=== PATIENT | female | born 1995 | race Caucasian/White ===

== ENCOUNTER 2020-12-20 14:09 | Emergency (ER) | payer OTHER ==
[2020-12-20] MEDS ORDERED: IBUPROFEN 400 MG TAB ONE (15:57)
--- NOTE | 2020-12-20 16:03 | RAD REPORT ---
EXAM DESCRIPTION: RAD - Ankle Right 3 View - 12/20/2020 3:19 pm CLINICAL HISTORY: PAIN, trip and fall COMPARISON: No comparisons FINDINGS: No fracture, dislocation or periosteal reaction. No joint effusion seen. No joint space na rrowing. Lateral soft tissue swelling is present. IMPRESSION: Lateral soft tissue swelling with no fracture identifiable of the right ankle.
--- NOTE | 2020-12-20 16:28 | EDPHYS ---
Physician Documentation [facility] Name: Louise Reyez Age: 25 yrs Sex: Female : 1995 Arrival Date: 12/20/2020 Time: 14:13 Bed 12 Private MD: ED Physician Richard Dangelo HPI: 12/20 17:03 This 25 yrs old Female presents to ER via Wheelchair with complaints of Ankle kb Injury. 17:03 The patient presents with decreased range of motion, an injury, pain, swelling, kb tenderness. The complaints affect the right ankle. Onset: The symptoms/episode began/occurred today. Context: The problem was sustained at home, resulted from slipped on laundry basket in garage, The patient is unable to bear weight. the patient is able to ambulate. Associated signs and symptoms: Pertinent positives: swelling, Pertinent negatives: calf tenderness, fever, nausea, numbness, rash, tingling, vomiting, warmth, weakness. Modifying factors: The symptoms are alleviated by nothing, the symptoms are aggravated by weight bearing, movement. Severity of symptoms: At their worst the symptoms were moderate, in the emergency department the symptoms are unchanged. The patient has not experienced similar symptoms in the past. The patient has not recently seen a physician. 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 - Social history:: Smoking status: . ROS: 17:02 Constitutional: Negative for fever, chills, and weight loss, Skin: Negative for injury, kb rash, and discoloration, Neuro: Negative for headache, weakness, numbness, tingling, and seizure. 17:02 MS/extremity: Positive for injury or acute deformity, decreased range of motion, pain, swelling, tenderness, of the right ankle. Exam: 17:02 Constitutional: This is a well developed, well nourished patient who is awake, alert, kb and in no acute distress. Head/Face: Normocephalic, atraumatic. Respiratory: Respirations even and unlabored. No increased work of breathing, no retractions or nasal flaring. Skin: Warm, dry with normal turgor. Normal color. Neuro: Awake and alert, GCS 15, oriented to person, place, time, and situation. Moves all extremities. Normal gait. 17:02 Musculoskeletal/extremity: Extremities: grossly normal except: noted in the right ankle: decreased ROM, pain, swelling, tenderness, ROM: limited passive range of motion due to pain, in the right ankle, Circulation is intact in all extremities. Sensation intact. Weight bearing: is unable to bear weight. Vital Signs: 14:34 BP 132 / 86; Pulse 89; Resp 17; Temp 97.9(O); Pulse Ox 100% on R/A; Weight 111.13 kg tw2 (R); Height 5 ft. 8 in. (172.72 cm); Pain 7/10; 14:34 Body Mass Index 37.25 (111.13 kg, 172.72 cm) tw2 Procedures: 16:58 Splinting: Splint applied to right ankle using Orthoglass splint, applied by nurse. kb Examined by me, post splint application: neurovascular intact, 2+ distal pulses palpable, brisk capillary refill noted, Patient tolerated well. MDM: 15:07 Patient medically screened. kb 16:57 Data reviewed: vital signs, nurses notes. Data interpreted: Pulse oximetry: on room air kb is 100 %. Interpretation: normal. Counseling: I had a detailed discussion with the patient and/or guardian regarding: the historical points, exam findings, and any diagnostic results supporting the discharge/admit diagnosis, the need for outpatient follow up, a orthopedic surgeon, to return to the emergency department if symptoms worsen or persist or if there are any questions or concerns that arise at home. 12/20 14:40 Order name: XRAY Ankle RIGHT 3 view; Complete Time: 16:06 ss 12/20 15:30 Order name: Short Leg Splint; Complete Time: 17:04 kb 12/20 15:30 Order name: Crutches; Complete Time: 17:04 kb Administered Medications: 15:42 Drug: Ibuprofen 800 mg Route: PO; ss 17:04 Follow up: Response: No adverse reaction; Pain is decreased ss Disposition: 12/21 08:00 Co-signature as Attending Physician, Richard Dangelo MD I agree with the assessment and kdr plan of care. Disposition: 12/20/20 16:28 Discharged to Home. Impression: Sprain of ankle. - Condition is Stable. - Discharge Instructions: Ankle Sprain, [id number]. - Prescriptions for Ibuprofen 800 mg Oral Tablet - take 1 tablet by ORAL route every 8 hours As needed take with food; 30 tablet. - Medication Reconciliation Form, Thank You Letter, Antibiotic Education, Prescription Opioid Use form. - Follow up: Emergency Department; When: As needed; Reason: Worsening of condition. Follow up: Private Physician; When: 2 - 3 days; Reason: Recheck today's complaints, Continuance of care, Re-evaluation by your physician. Signatures: Dispatcher [employer] EDMS Dede Mcpherson, INSURANCE CONSULTANT-C INSURANCE CONSULTANT-Richard Funez MD MD [facility] Saadai Mills RN RN ss Alyssa Ortega RN RN tw2 Corrections: (The following items were deleted from the chart) 12/20 17:05 16:28 12/20/2020 16:28 Discharged to Home. Impression: Sprain of ankle. Condition is ss Stable. Forms are Medication Reconciliation Form, Thank You Letter, Antibiotic Education, Prescription Opioid Use. Follow up: Emergency Department; When: As needed; Reason: Worsening of condition. Follow up: Private Physician; When: 2 - 3 days; Reason: Recheck today's complaints, Continuance of care, Re-evaluation by your physician. kb
--- NOTE | 2020-12-20 16:28 | ER ---
Nurse's Notes [facility] Name: Louise Reyez Age: 25 yrs Sex: Female : 1995 Arrival Date: 12/20/2020 Time: 14:13 Bed 12 Private MD: Diagnosis: Sprain of ankle Presentation: 12/20 14:34 Chief complaint: Patient states: i was in my garage in these crocks and i tripped over tw2 a laundry basket, my RIGHT ankle bent, i heard a pop or a crack, i cant put any weight on it, it is a little bit swollen and i hope its not broken, i did take some tylenol a little less than an hour. Coronavirus screen: At this time, the client does not indicate any symptoms associated with coronavirus-19. Ebola Screen: Patient denies travel to an Ebola-affected area in the 21 days before illness onset. Initial Sepsis Screen: Does the patient meet any 2 criteria? No. Patient's initial sepsis screen is negative. Does the patient have a suspected source of infection? No. Patient's initial sepsis screen is negative. Risk Assessment: Do you want to hurt yourself or someone else? Patient reports no desire to harm self or others. Onset of symptoms was December 20, 2020. 14:34 Method Of Arrival: Wheelchair tw2 14:34 Acuity: FABIOLA 4 tw2 Triage Assessment: 14:38 General: Appears in no apparent distress. uncomfortable, obese, well groomed, Behavior tw2 is calm, cooperative, appropriate for age. Pain: Complains of pain in RIGHT ankle. Musculoskeletal: Circulation, motion, and sensation intact. Range of motion: limited in right ankle. 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 - Social history:: Smoking status: . Screenin:48 Abuse screen: Denies threats or abuse. Nutritional screening: No deficits noted. tw2 Tuberculosis screening: No symptoms or risk factors identified. Fall Risk None identified. Assessment: 15:07 General: Appears in no apparent distress. Behavior is calm, cooperative, Denies feeling ss ill. Pain: Complains of pain in right ankle Pain currently is 7 out of 10 on a pain scale. Neuro: Level of Consciousness is awake, alert, obeys commands. Cardiovascular: Pulses are palpable in right posterior tibial artery and left posterior tibial artery. Respiratory: Airway is patent Respiratory effort is even, unlabored, Respiratory pattern is regular, symmetrical. EENT: Oral mucosa is moist. Derm: Skin is intact, is healthy with good turgor, Skin is dry, Skin is pink, warm \T\ dry. normal. Musculoskeletal: Swelling present in right ankle. Vital Signs: 14:34 BP 132 / 86; Pulse 89; Resp 17; Temp 97.9(O); Pulse Ox 100% on R/A; Weight 111.13 kg tw2 (R); Height 5 ft. 8 in. (172.72 cm); Pain 7/10; 14:34 Body Mass Index 37.25 (111.13 kg, 172.72 cm) tw2 ED Course: 14:13 Patient arrived in ED. mr 14:36 Triage completed. tw2 14:37 Arm band placed on. tw2 15:07 Dede Mcpherson FNP-C is [facility]. kb 15:07 Richard Dangelo MD is Attending Physician. kb 15:19 XRAY Ankle RIGHT 3 view In Process Unspecified. EDMS 15:33 Saadia Mills, RN is Primary Nurse. ss 17:04 No provider procedures requiring assistance completed. Patient did not have IV access ss during this emergency room visit. Crutch training done. Orthoglass splint: Posterior short lleg splint applied on right leg. Administered Medications: 15:42 Drug: Ibuprofen 800 mg Route: PO; ss 17:04 Follow up: Response: No adverse reaction; Pain is decreased ss Outcome: 16:28 Discharge ordered by . kb 17:04 Discharged to home ambulatory. ss 17:04 Condition: good 17:04 Discharge instructions given to patient, Instructed on discharge instructions, follow up and referral plans. Demonstrated understanding of instructions, follow-up care, Prescriptions given X 1. 17:05 Patient left the ED. ss Signatures: Dispatcher [employer] EDMS Dede Mcpherson FNP-C MILK RECEIVER-Ckb Jennie Dickinson mr Saadia Mills, RN RN ss OrtegaAlyssa RN RN tw2
[2020-12-20 17:19] VITALS: BP 132/86; TEMP 97.9; O2SAT 100
== END 2020-12-20 17:05 | disposition home or self-care (01) ==
LOC: ER 14:09
PROC: 2W3QX1Z Immobilization of Right Lower Leg using Splint (ICD-10-PCS; principal; 2020-12-20)
DX: S93.401A Sprain of unspecified ligament of right ankle, initial encounter (principal); W01.0XXA Fall on same level from slipping, tripping and stumbling without subsequent striking against object, initial encounter; Y93.01 Activity, walking, marching and hiking; Y92.008 Other place in unspecified non-institutional (private) residence as the place of occurrence of the external cause; F41.9 Anxiety disorder, unspecified; Z91.040 Latex allergy status; Z91.048 Other nonmedicinal substance allergy status
CPT/HCPCS: 99284